=== PATIENT | male | born 1965 | race Caucasian/White ===

== ENCOUNTER → 2025-05-08 09:20 | Day surgery (SDC) | payer OTHER, SELFPAY ==
[2025-05-02 12:53] VITALS: BMI 38.7
[2025-05-08 10:18] VITALS: BP 227/88; PULSE 48; RESP 16
[2025-05-08 10:29] VITALS: BMI 38.7
[2025-05-08] MEDS: ACETAMINOPHEN 325 MG TABLET 975 MG PO (10:34)
[2025-05-08] MEDS: LACTATED RINGERS 1,000 ML 42 ML IV (10:35)
[2025-05-08 10:38] VITALS: BP 227/119; PULSE 48
[2025-05-08 10:46] VITALS: BP 229/114; PULSE 48; RESP 16; TEMP 36.4; O2SAT 98
--- NOTE | 2025-05-08 11:05 | SUR.PREOP ---
Pt BP elevated. See Vs. Tried different monitor and cuff. Pt took Lisinopril yesterday per normal bedtime routine. No PCP at this time. Procedure cancelled by Dr Lockhart and Dr Hassan. Pt with no PCP (he retired). Pt escorted to the ED.
== END | disposition home or self-care (01) ==
PROVIDERS: Referring Provider Orthopaedic Surgery; Visit Provider Orthopaedic Surgery
DX: M67.921 Unspecified disorder of synovium and tendon, right upper arm (principal); M75.101 Unspecified rotator cuff tear or rupture of right shoulder, not specified as traumatic; Z53.9 Procedure and treatment not carried out, unspecified reason
CPT/HCPCS: 29824; J1100; J2250; J2405; J2704; J3010

== ENCOUNTER 2025-05-08 11:09 | Emergency (ER) | payer OTHER, SELFPAY ==
[2025-05-08] VITALS (23 sets, daily range): BP systolic 165–243; BP diastolic 81–105; PULSE 48–62; RESP 20; TEMP 37; O2SAT 93–100; BMI 41.5
--- NOTE | 2025-05-08 11:16 | EKG_ITS ---
[place] [id number] [place] [id number] Test Date: 2025-05-08 Pat Name: Jay Padilla Department: Room: Gender: Male Center Lead Consultant: : 1965 Requested By: Order Number: [id number] Reading MD: Pavan Seals Measurements Intervals [place] Rate: 52 P: 15 MS: 222 QRS: -51 QRSD: 138 T: 89 QT: 440 QTc: 409 Interpretive Statements Sinus bradycardia with 1st degree AV block Left axis deviation Left ventricular hypertrophy with QRS widening and repolarization abnormality ( R in aVL , Lars product , Romhilt-Doan ) Electronically Signed On 05-09-2025 18:03:23 PDT by Pavan Seals
--- NOTE | 2025-05-08 11:36 | DI.RAD.S_ITS ---
PROCEDURE: XR CHEST 1V INDICATIONS: Chest Pain TECHNIQUE: One view of the chest was acquired. COMPARISON: None. FINDINGS: Surgical changes and devices: None. Lungs and pleura: Lungs are clear. No pleural effusions or pneumothorax. Mediastinum: Mediastinal contours appear normal. Borderline cardiomegaly. Bones and chest wall: No suspicious bony lesions. Overlying soft tissues appear unremarkable. IMPRESSION: No acute cardiopulmonary abnormality is seen. Dictated by: Bi Martinez M.D. on 05/08/2025 at 12:19 Approved by: iB Martinez M.D. on 05/08/2025 at 12:19
--- NOTE | 2025-05-08 11:54 | PC.NURSE ---
Pt arrived to ED from surgery due to HTN. Pt scheduled to have rotator cuff surgery today but it was cancelled due to pt's systolic bp being consistently in 200s. Pt states that he has hx of HTN and takes lisinopril and another medication for bp that he could not recall the name. Pt took caily medications last night and this morning prior to checking in for surgery. Pt a&ox4. Denies any cp, sob, n/v. Ambulates with steady gait.
[2025-05-08 11:59] LABS: Add Manual Diff / Slide Review NO; Hematocrit 40.4 % (41-53); Hemoglobin 13.5 g/dL (13.5-17.5); Lymphocytes Absolute Auto 1500 /uL (1100-4500); Mean Corpuscular HGB Conc 33.5 % (30-36); Mean Corpuscular Hemoglobin 29.1 PG (26-34); Mean Corpuscular Volume 86.8 fL (80-100); Platelet Count 197 X10^3/uL (150-400)
[2025-05-08 12:05] LABS: INR 1.0 (0.9-1.3); Prothrombin Time 11.7 SECONDS (9.4-12.5)
[2025-05-08 12:08] LABS: PTT Partial Thromboplastin Tim 34 SECONDS (25.1-36.5)
[2025-05-08 12:09] LABS: Alanine Aminotransferase 61 IU/L (<50); Albumin 4.3 g/dL (3.5-5.0); Albumin Globulin Ratio 1.6 (1.0-2.8); Alkaline Phosphatase 72 U/L (38-126); Blood Urea Nitrogen 14 mg/dL (9-20); Calcium 10.9 mg/dL (8.4-10.2); Carbon Dioxide 29 mmol/L (22-32); Chloride 103 mmol/L (98-107); Creatine Kinase 45 U/L (55-170); Estimated Glomerular Filt Rate > 60 mL/min (>60); Globulin 2.7 g/dL (1.7-4.1); Glucose 121 mg/dL (70-99); HEMOLYSIS < 15 (0-50); Lipase 54 U/L (23-300); Magnesium 2.0 mg/dL (1.6-2.3); Potassium 4.8 mmol/L (3.4-5.1); Sodium 137 mmol/L (137-145); Total Protein 7.0 g/dL (6.3-8.2)
[2025-05-08 12:20] LABS: NT-proBNP (BNP-Adult 18+) 227 pg/mL (<125); Troponin I < 0.012 ng/mL (0.01-0.034)
--- NOTE | 2025-05-08 16:22 | ED.GENADULT ---
HPI - General Adult General Chief complaint: Hypertension Stated complaint: canceled surgery because of High blood pressure Time Seen by Provider: 05/08/25 16:13 Source: patient and RN notes reviewed Mode of arrival: Ambulatory History of Present Illness HPI narrative: Patient here with . Sent here from operating room due to high blood pressure. Patient was scheduled for right shoulder surgery today but blood pressure was too high. He is on meloxicam and on lisinopril. Patient states 2 weeks ago preop his blood pressure was at baseline 150 systolic. He denies denies any anxiety he denies denies any chest pain headache shortness breath back pain or abdominal pain. He was placed on lisinopril 4 months ago. He was placed on meloxicam 3 months ago. Four months ago his blood pressure was this high before starting lisinopril. Related Data Home Medications ?Medication ?Instructions ?Recorded ?Confirmed lisinopril 10 mg tablet 20 mg PO DAILY High Blood Pressure 04/11/25 05/16/25 meloxicam 15 mg tablet 15 mg PO DAILY Shoulder issue 04/11/25 05/08/25 cyclobenzaprine 10 mg tablet 10 mg PO 3XD PRN muscle spasm 05/02/25 05/08/25 gabapentin 300 mg capsule 300 mg PO BID PRN pain 05/02/25 05/08/25 Previous Rx's ?Medication ?Instructions ?Recorded acetaminophen 500 mg capsule 1,000 mg (2 x 500 mg) PO Q6H PRN 05/02/25 pain #90 caps ondansetron 4 mg disintegrating 4 mg PO Q8H PRN nausea and 05/02/25 tablet vomiting #14 tabs oxycodone 5 mg capsule 5 mg PO Q4H PRN pain #30 caps 05/02/25 oxycodone 5 mg tablet 5 mg PO Q4H PRN pain #30 tabs 05/06/25 docusate sodium 100 mg capsule 100 mg PO BID #20 caps 05/09/25 (Colace) Allergies Allergy/AdvReac Type Severity Reaction Status Date / Time Penicillins Allergy Intermediate Rash Verified 05/08/25 11:31 hydrocodone (From Vicodin) AdvReac Nausea Verified 05/08/25 11:31 Review of Systems Review of Systems Narrative: GENERAL: Negative chills, fatigue, malaise, fever, sweats. HEENT: Negative sinus pain, ear pain, sore throat RESPIRATORY: Negative dyspnea, cough CARDIOVASCULAR: Negative chest pain, palpitations GASTROINTESTINAL: Negative vomiting, nausea, abdominal pain : Negative dysuria, frequency, hematuria MUSCULOSKELETAL: Negative muscle or bony pain SKIN: Negative rash, skin lesions NEUROLOGIC: Negative weakness, numbness ROS Unobtainable: All systems reviewed & are unremarkable except as noted in HPI and below Patient History Medical History (Updated 05/08/25 @ 17:36 by Haroon Pop MD) HTN (hypertension) Bradycardia Social History household members: spouse Smoking Status: Former smoker Smoking Status: Never smoker Exam Narrative Exam Narrative: GENERAL: in no distress, not toxic not dyspneic HEAD: Normocephalic. EYES: Pupils equal round ENT: Mucous membranes moist. NECK: Trachea midline. CARDIOVASCULAR: Regular rate and rhythm RESPIRATORY: Clear to auscultation. Breath sounds equal bilaterally. No wheezes, rales, or rhonchi. GASTROINTESTINAL: Abdomen soft, non-tender EXTREMITIES: No gross deformities. BACK: No flank tenderness. NEURO: AOx4. Clear speech SKIN: Warm and dry PSYCH: Not anxious, is cooperative Initial Vital Signs Initial Vital Signs: Vital Signs Temperature 98.6 F 05/08/25 11:31 Pulse Rate 48 L 05/08/25 11:31 Respiratory Rate 20 05/08/25 11:31 Blood Pressure 243/104 H 05/08/25 11:31 Pulse Oximetry 100 05/08/25 11:31 Oxygen Delivery Method Room Air 05/08/25 11:31 Course Orders Ordered: Discontinued Medications Aspirin (Aspirin 81 Mg Chew Tab) 324 mg PO NOW ONE Stop: 05/08/25 11:37 Hydralazine HCl (Hydralazine 20 Mg/Ml Vial) 10 mg IV Q6HR PRN PRN Reason: Hypertension Last Admin: 05/08/25 16:44 Dose: 10 mg Documented By: RB Vital Signs Vital signs: Vital Signs - 8 hr 05/08/25 11:31 05/08/25 12:07 05/08/25 14:33 Temperature 98.6 F Pulse Rate 48 L Respiratory Rate 20 Blood Pressure 243/104 H 212/96 H 218/97 H Pulse Oximetry 100 Oxygen Delivery Method Room Air 05/08/25 15:03 05/08/25 15:16 05/08/25 15:16 Temperature Pulse Rate 51 L Respiratory Rate Blood Pressure 238/105 H Pulse Oximetry 93 96 Oxygen Delivery Method 05/08/25 15:30 05/08/25 15:31 05/08/25 15:31 Temperature Pulse Rate 48 L 50 L Respiratory Rate Blood Pressure 220/98 H Pulse Oximetry 95 96 Oxygen Delivery Method 05/08/25 15:46 05/08/25 15:46 05/08/25 16:00 Temperature Pulse Rate 49 L 58 L Respiratory Rate Blood Pressure 211/92 H Pulse Oximetry 96 94 Oxygen Delivery Method 05/08/25 16:01 05/08/25 16:01 05/08/25 16:43 Temperature Pulse Rate 57 L 52 L Respiratory Rate Blood Pressure 222/102 H Pulse Oximetry 95 98 Oxygen Delivery Method 05/08/25 16:44 05/08/25 16:44 05/08/25 16:44 Temperature Pulse Rate 62 52 L Respiratory Rate Blood Pressure 235/102 H 235/102 H Pulse Oximetry 98 Oxygen Delivery Method 05/08/25 16:45 05/08/25 16:45 05/08/25 16:50 Temperature Pulse Rate 49 L 52 L Respiratory Rate Blood Pressure 222/95 H Pulse Oximetry 97 97 Oxygen Delivery Method 05/08/25 16:50 05/08/25 16:55 05/08/25 16:55 Temperature Pulse Rate 55 L Respiratory Rate 20 Blood Pressure 229/89 H 191/87 H Pulse Oximetry 97 Oxygen Delivery Method 05/08/25 17:00 05/08/25 17:00 05/08/25 17:05 Temperature Pulse Rate 57 L 54 L Respiratory Rate Blood Pressure 184/91 H Pulse Oximetry 97 97 Oxygen Delivery Method 05/08/25 17:05 05/08/25 17:10 05/08/25 17:10 Temperature Pulse Rate 53 L Respiratory Rate 20 Blood Pressure 180/81 H 180/87 H Pulse Oximetry 96 Oxygen Delivery Method Medical Decision Making Lab Data 05/08/25 11:50 05/08/25 11:50 Labs: Lab Results 05/08/25 Range/Units 11:50 WBC 6.0 (4.5-11.0) X10^3/uL RBC 4.66 (4.5-5.9) X10^6/uL Hgb 13.5 (13.5-17.5) g/dL Hct 40.4 L (41-53) % MCV 86.8 (80-100) fL MCH 29.1 (26-34) PG MCHC 33.5 (30-36) % RDW 13.5 (11.6-14.8) % Plt Count 197 (150-400) X10^3/uL Neut % (Auto) 57.1 (50-75) % Lymph % (Auto) 24.3 L (25-40) % [place] % (Auto) 7.8 (3-14) % Eos % (Auto) 9.4 H (2-4) % Baso % (Auto) 1.4 (0-2) % Neut # (Auto) 3400 (5848-5040) /uL Lymph # (Auto) 1500 (0130-4237) /uL [place] # (Auto) 500 (0-900) /uL Eos # (Auto) 600 H (0-450) /uL Baso # (Auto) 100 (0-100) /uL PT 11.7 (9.4-12.5) SECONDS INR 1.0 (0.9-1.3) APTT 34 (25.1-36.5) SECONDS Sodium 137 (137-145) mmol/L Potassium 4.8 (3.4-5.1) mmol/L Chloride 103 (98-107) mmol/L Carbon Dioxide 29 (22-32) mmol/L BUN 14 (9-20) mg/dL Creatinine 0.78 (0.66-1.25) mg/dL Estimated GFR > 60 (>60) mL/min BUN/Creatinine Ratio 17.9 (6-22) Glucose 121 H (70-99) mg/dL Calcium 10.9 H (8.4-10.2) mg/dL Magnesium 2.0 (1.6-2.3) mg/dL Total Bilirubin 0.6 (0.2-1.3) mg/dL AST 41 (17-59) IU/L ALT 61 H (<50) IU/L Alkaline Phosphatase 72 (38-126) U/L Total Creatine Kinase 45 L (55-170) U/L Troponin I < 0.012 (0.01-0.034) ng/mL NT-Pro-B Natriuret Pep 227 H (<125) pg/mL Total Protein 7.0 (6.3-8.2) g/dL Albumin 4.3 (3.5-5.0) g/dL Globulin 2.7 (1.7-4.1) g/dL Albumin/Globulin Ratio 1.6 (1.0-2.8) Lipase 54 (23-300) U/L Imaging Data Chest x-ray: Radiologist's Impression: [address] [address] XRay Report Signed Patient: Jay Padilla MR#: [id number] : 1965 Acct:[id number] Age/Sex: 59 / M Date of Service: 05/08/25 Loc: ED Accession Number: [id number] Procedure: XR chest 1V Ordering Provider: Haroon Pop MD PROCEDURE: XR CHEST 1V INDICATIONS: Chest Pain TECHNIQUE: One view of the chest was acquired. COMPARISON: None. FINDINGS: Surgical changes and devices: None. Lungs and pleura: Lungs are clear. No pleural effusions or pneumothorax. Mediastinum: Mediastinal contours appear normal. Borderline cardiomegaly. Bones and chest wall: No suspicious bony lesions. Overlying soft tissues appear unremarkable. IMPRESSION: No acute cardiopulmonary abnormality is seen. Dictated by: Bi Martinez M.D. on 05/08/2025 at 12:19 Approved by: Bi Martinez M.D. on 05/08/2025 at 12:19 [facility] Narrative Medical decision making narrative: Patient here with . Sent here from operating room due to high blood pressure. Patient was scheduled for right shoulder surgery today but blood pressure was too high. He is on meloxicam and on lisinopril. Patient states 2 weeks ago preop his blood pressure was at baseline 150 systolic. He denies denies any anxiety he denies denies any chest pain headache shortness breath back pain or abdominal pain. He was placed on lisinopril 4 months ago. He was placed on meloxicam 3 months ago. Four months ago his blood pressure was this high before starting lisinopril. After history and exam, CBC CMP EKG [facility] Medical records reviewed: No recent visit for this complaint Differential considered: Includes but not limited to essential hypertension anxiety Lab Test results independently reviewed as above. Pertinent findings: WBC 6.0 hemoglobin 13.5 INR 1.0 sodium 137 potassium 4.8 BUN 14 creatinine 0.78 troponin less than 0.012 BNP 227 Independently reviewed EKG sinus bradycardia rate 52 Imaging studies independently reviewed: Chest x-ray no acute finding Consultations: None indicated at this time Re-evaluations: 4:26 p.m.. Patient does not feel anxious or has been feeling anxious through the day. Reviewed results with them. Hydralazine has been ordered. Heart rate noted. We will have him continue lisinopril at twice a day instead of nightly. He does have appointment with primary care next Tuesday. Return precautions reviewed. They desire discharge home. Blood pressure 165/86, other measurements that were elevated afterwards it was because patient was very excited about going home and the cuff was being taken. Patient desires discharge home. He will take his lisinopril twice a day. He has a new doctor to see on Tuesday and he will have it rechecked. He will contact orthopedic office tomorrow to extend his L and I off because surgery with canceled today by orthopedic/anesthesia. Discussion: Appropriate for discharge home exam is reassuring. Patient is asymptomatic with elevated blood pressure it has improved at time of discharge. Return precautions reviewed and they desire discharge home Diagnosis: Hypertension Discharge Plan Departure Patient Disposition: Home Clinical Impression: Hypertension Qualifiers: Hypertension type: unspecified Qualified Code(s): I10 - Essential (primary) hypertension Instructions: DI for High Blood Pressure Activity Restrictions/Additional Instructions: Please take your blood pressure medication once in the morning and once at night. Please see your new family doctor next Tuesday as scheduled. Your exam and laboratory studies are reassuring today. Return if worse if any questions or concerns. Prescriptions: No Action oxycodone 5 mg capsule 5 mg PO Q4H PRN (Reason: pain) Qty: 30 0RF Patient Comments: post op med acetaminophen 500 mg capsule 1,000 mg PO Q6H PRN (Reason: pain) Qty: 90 0RF ondansetron 4 mg tablet,disintegrating 4 mg PO Q8H PRN (Reason: nausea and vomiting) Qty: 14 0RF Patient Comments: post op med oxycodone 5 mg tablet 5 mg PO Q4H PRN (Reason: pain) Qty: 30 0RF Patient Comments: post op med Rx Instructions: Pharmacy request tablets instead of capsule docusate sodium [Colace] 100 mg capsule 100 mg PO BID Qty: 20 0RF cyclobenzaprine 10 mg tablet 10 mg PO 3XD PRN (Reason: muscle spasm) gabapentin 300 mg capsule 300 mg PO BID PRN (Reason: pain) meloxicam 15 mg tablet 15 mg PO DAILY lisinopril 10 mg tablet 20 mg PO DAILY Stand Alone Forms: Patient Portal/API
[2025-05-08] MEDS: hydrALAZINE 20 MG/ML VIAL 10 MG IV (16:44)
--- NOTE | 2025-05-08 17:15 | PC.NURSE ---
patient denies chest pain or shortness of breath.
== END 2025-05-08 17:47 | disposition home or self-care (01) ==
PROVIDERS: Emergency Provider Emergency Medicine
DX: I10 Essential (primary) hypertension (principal); M67.921 Unspecified disorder of synovium and tendon, right upper arm; M75.101 Unspecified rotator cuff tear or rupture of right shoulder, not specified as traumatic; Z53.9 Procedure and treatment not carried out, unspecified reason
CPT/HCPCS: 36415; 71045; 80053; 82550; 83690; 83735; 83880; 84484; 85025; 85610; 85730; 93005; 96374; 99284; J0360